=== PATIENT | male | born 1995 ===

== ENCOUNTER 2024-01-13 16:35 | Emergency (ER) | payer OTHER ==
[~2024-01-13] VITALS: Ht 180.3 cm; Wt 82.0 kg
[2024-01-13 19:04] VITALS: BP 114/60; PULSE 70; RESP 18; TEMP 98.6; O2SAT 99
== END 2024-01-13 20:35 | disposition home or self-care (01) ==
LOC: EMS 16:35
DX: S00.83XA Contusion of other part of head, initial encounter (principal); X58.XXXA Exposure to other specified factors, initial encounter; Y93.89 Activity, other specified; Y92.89 Other specified places as the place of occurrence of the external cause; Y99.8 Other external cause status
CPT/HCPCS: 99282; Z7502